=== PATIENT | female | born 1995 | race African-American/Black ===

== ENCOUNTER 2023-08-13 19:52 | Emergency (ER) | payer OTHER, SELFPAY ==
--- NOTE | 2023-08-13 20:42 | [facility].EDGENADL ---
Discharge Plan Disposition Patient Disposition: Home, Self-Care Prescriptions Prescriptions: New ondansetron 4 mg tablet,disintegrating 4 mg PO Q6H PRN (Reason: nausea and vomiting) 5 Days Qty: 20 0RF Referrals Follow up/Referrals: Provider,Referral, [Primary Care Provider] - See instructions Clinical Impressions Clinical Impression: Acute viral syndrome Discharge ED Provider: Vilma Fernandez General Adult HPI General Chief complaint: Upper Respiratory Infection Stated complaint: body aches, sore throat, cough Time Seen by Provider: 08/13/23 20:37 History of Present Illness HPI narrative: Patient is a 27-year-old female present today with cough sore throat nausea body aches. She denies any past medical history has not had any Tylenol or ibuprofen prior to arrival. She denies any other symptoms. She also is accompanied by her daughter who has similar symptoms. Her symptoms began today. Related Data Previous Rx's Medication Instructions Recorded ondansetron 4 mg disintegrating 4 mg PO Q6H PRN nausea and 08/13/23 tablet vomiting 5 days #20 tabs Allergies Allergy/AdvReac Type Severity Reaction Status Date / Time No Known Allergies Allergy Verified 08/13/23 20:43 [facility] Disclaimer: The information contained in this section may have been updated after the patient was seen, as this information can be updated by other users. Social History Smoking Status: Current every day smoker alcohol intake: never current occupational status: other Travel in the last 8 weeks: None ROS Obtained: Yes All systems reviewed & no additional complaints except as documented Physical Exam General General appearance: alert Respiratory Respiratory exam: Present normal lung sounds bilaterally Cardiovascular Cardiovascular exam: Present regular rate; Absent tachycardia Neurological Exam Neurological exam: Present alert Medical Decision Making Mal Inquiry Pt receiving controlled substance: No Vital Signs: 08/13/23 20:44 Temperature 98.9 F Temperature Source Oral Pulse Rate [Left Radial] 114 H Respiratory Rate 20 Blood Pressure [Right Arm] 99/69 L Blood Pressure Mean [Right Arm] 79 Blood Pressure Source [Right Arm] Automatic Cuff Blood Pressure Position [Right Arm] Sitting 02 Sat by Pulse Oximetry 100 Oxygen Delivery Method Room Air Orders (Tests/Meds): ED MEDICATIONS Discontinued Medications Generic Name Dose Route Start Last Admin Trade Name Freq PRN Reason Stop Dose Admin Acetaminophen 1,000 mg 08/13/23 20:40 08/13/23 21:02 Acetaminophen 500mg Tab PO 08/13/23 20:41 1,000 mg ONCE ONE Administration Ondansetron HCl 4 mg 08/13/23 20:40 08/13/23 21:02 Ondansetron 4mg Odt SL 08/13/23 20:41 4 mg ONCE ONE Administration ORDERS Category Date Time Status Rapid PCR Covid and Flu A/B Stat Lab 08/13/23 20:40 Received Medical Decision Narrative: Well-appearing well-hydrated nontoxic-appearing 27-year-old female doubt any significant past medical history will obtain a swab give Tylenol as she states she cannot have ibuprofen and will also administer Zofran and will reassess. Patient can follow-up on her COVID and flu test she has no significant medical problems not a candidate for antiviral therapy will be treated supportively prescription of Zofran sent to her pharmacy. Critical Care Critical Care Time Critical Care Time: No
[2023-08-13 20:44] VITALS: BP 99/69; PULSE 114; RESP 20; TEMP 37.2; O2SAT 100; BMI 20.7
[2023-08-13 20:49] LABS: Coronavirus 19, PCR Not Detected (NotDetected); Influenza B, PCR Not Detected (NotDetected)
[2023-08-13] MEDS: ONDANSETRON 4MG ODT 4 MG SL (21:02)
[2023-08-13] MEDS: ACETAMINOPHEN 500MG TAB 1000 MG PO (21:02)
[2023-08-13 21:30] LABS: Influenza A, PCR Detected (NotDetected)
[2023-08-13 21:39] VITALS: BP 108/68; PULSE 94; RESP 20; TEMP 37.2; O2SAT 100
== END 2023-08-13 21:40 | disposition home or self-care (01) ==
PROVIDERS: Emergency Provider Student in an Organized Health Care Education/Training Program
DX: R05.9 Cough, unspecified (principal); J02.9 Acute pharyngitis, unspecified; R11.0 Nausea; B34.9 Viral infection, unspecified; F17.200 Nicotine dependence, unspecified, uncomplicated
CPT/HCPCS: 87636; 99283